=== PATIENT | male | born 1995 | race Two or more races ===

== ENCOUNTER 2017-10-22 15:38 | Emergency (ER) | payer SELFPAY ==
[~2017-10-22] VITALS: Ht 160 cm; Wt 81.6 kg
[2017-10-22] MEDS ORDERED: MULT1TAB73 PO (15:47)
--- NOTE | 2017-10-22 16:50 | NUR ---
No acute change in condition seen, pending results & disposition, patient wants to go outside for few minutes, MD is aware.
--- NOTE | 2017-10-22 17:18 | NUR ---
Patient discharged to home in stable conditon & steady gait. Written and verbal after care instructions given to patient. Patient verbalizes understanding of instructions.
== END 2017-10-22 17:22 | disposition home or self-care (01) ==
LOC: ER 15:43
DX: R07.9 Chest pain, unspecified (principal); Z79.899 Other long term (current) drug therapy
CPT/HCPCS: 36415; 71045; 93005; A4663

== ENCOUNTER 2019-10-05 00:23 | Emergency (ER) | payer BC, OTHER ==
[~2019-10-05] VITALS: Ht 162.6 cm; Wt 77.1 kg
[~2019-10-05 00:23] MED LIST: MULT1TAB73 PO
--- NOTE | 2019-10-05 00:38 | NUR ---
DR FRANKS AT BEDSIDE FOR MSE.
[2019-10-05] MEDS ORDERED: AZITHROMYCIN 250 MG TABLET PO ONE (00:45)
[2019-10-05] MEDS ORDERED: AZITHROMYCIN 250 MG TABLET ONE (00:48)
--- NOTE | 2019-10-05 00:53 | NUR ---
Patient discharged to home in stable conditon. Written and verbal after care instructions given. Patient verbalizes understanding of instructions. Pt walked out of ER with stable gait, accompanied by mother. No acute distress noted.
[2019-10-05 00:54] VITALS: BP 145/87
== END 2019-10-05 00:59 | disposition home or self-care (01) ==
LOC: ER 00:29
DX: J06.9 Acute upper respiratory infection, unspecified (principal); Z79.899 Other long term (current) drug therapy
CPT/HCPCS: A4663; Q0144